=== PATIENT | male | born 1940 | race Caucasian/White ===

== ENCOUNTER 2020-03-30 08:52 | Day surgery (SDC) | payer MEDICARE, BC ==
[~2020-03-30] VITALS: Ht 172.7 cm; Wt 52.7 kg
[2020-03-30] VITALS (8 sets, daily range): BP systolic 102–130; BP diastolic 51–74
[2020-03-30] MEDS ORDERED: albumin 25% 100mL bottle x 1 IV PRN (09:15)
[2020-03-30] MEDS ORDERED: CALC-437 PO (09:28)
[2020-03-30] MEDS ORDERED: ASPI-611 PO (09:28)
[2020-03-30] MEDS ORDERED: AMIO200T27 PO (09:28)
[2020-03-30] MEDS ORDERED: ONDA-103 SL (09:28)
[2020-03-30] MEDS ORDERED: CARV12.545 PO (09:28)
[2020-03-30] MEDS ORDERED: FURO40TA4 PO (09:28)
[2020-03-30] MEDS ORDERED: DIGO-20 PO (09:28)
== END 2020-03-30 12:11 | disposition home or self-care (01) ==
LOC: SSTAY O 08:52
PROVIDERS: ATTEND Radiology Diagnostic Radiology
DX: J90 Pleural effusion, not elsewhere classified (principal); C34.11 Malignant neoplasm of upper lobe, right bronchus or lung; Z88.8 Allergy status to other drugs, medicaments and biological substances; Z79.82 Long term (current) use of aspirin; Z79.899 Other long term (current) drug therapy; Z85.828 Personal history of other malignant neoplasm of skin; Z95.0 Presence of cardiac pacemaker
CPT/HCPCS: 32555; 71045